=== PATIENT | female | born 1980 | race Hispanic/Latino ===

== ENCOUNTER 2017-07-03 20:41 | Emergency (ER) | payer OTHER ==
--- NOTE | 2017-07-03 23:53 | Emergency Department Report ---
ED Rash HPI - HPI Chief Complaint: Skin Rash Stated Complaint: RASH Time Seen by Provider: 07/03/17 23:37 Rash Symptoms: Yes Itching, No Facial Swelling, No Tongue/Oral Swelling, No Breathing Difficulties, No Choking Sensation, No Wheezing/Dyspnea, No Peeling, No Blistering, No Fever, No Lightheaded, No Malaise, No Myalgias Severity: mild Other History: 37-year-old female past medical history migraines presents with complaint of rash to legs and groin back and lower abdomen. Patient states she started taking medicines this week for bronchitis including Augmentin and albuterol prednisone pack and Tessalon Perles. States she was treated at urgent care approximately 3-4 days ago. Patient is awake alert and oriented 3 does not appear to be in acute distress. Complains of slight itching on lower extremities. Denies chest pain shortness of breath nausea vomiting fever or chills. Denies any intraoral lesions. Denies use of any new cosmetics or new pets new fabrics new soaps or recent travel. ED Review of Systems ROS: Stated complaint: RASH Other details as noted in HPI Constitutional: denies: chills, fever Eyes: denies: eye pain, eye discharge, vision change ENT: denies: ear pain, throat pain Respiratory: denies: cough, shortness of breath, wheezing Cardiovascular: denies: chest pain, palpitations Endocrine: no symptoms reported Gastrointestinal: denies: abdominal pain, nausea, diarrhea Genitourinary: denies: urgency, dysuria, discharge Musculoskeletal: denies: back pain, joint swelling, arthralgia Skin: as per HPI. denies: rash, lesions Neurological: denies: headache, weakness, paresthesias Psychiatric: denies: anxiety, depression Hematological/Lymphatic: denies: easy bleeding, easy bruising ED Past Medical Hx - Past Medical History Hx Headaches / Migraines: Yes - Surgical History Past Surgical History?: No - Social History Smoking Status: Unknown if ever smoked Substance Use Type: None - Medications Home Medications: Home Medications Medication Instructions Recorded Confirmed Last Taken Type diphenhydrAMINE [Benadryl CAP] 25 mg PO Q8HR PRN #30 capsule 07/04/17 Unknown Rx Rash Exam - Exam General: Vital signs noted. No distress. Alert and acting appropriately. HEENT: No Periorbital Edema, No Conjuctival Injection, No Chemosis, No Perioral Edema, No Tongue Edema, No Uvular Edema, No Compromised Airway, No Drooling Lungs: Yes Good Air Exchange (Normal Breath Sounds), No Wheezes, No Ronchi, No Stridor, No Cough, No Labored Respirations, No Retractions, No Use of Accessory Muscles, No Other Abnormal Lung Sounds Heart: Yes Regular, No Murmur Skin: Yes Maculopapular Rash (round erythematous papules of different sizes on lower extremities back and abdomen. No significant visible intraoral lesions), Yes Excoriations, No Urticarial Rash, No Morbilliform rash, No Bulla(e), No Weeping, No Tenderness, No Erythema, No Edema, No Encrustations, No Other Other: Positive: Abdomen Normal, Neurologic Normal, Musculoskeletal Normal ED Course Vital Signs 07/03/17 07/03/17 21:45 22:08 Temperature 98.5 F 98.7 F Pulse Rate 83 87 Respiratory 18 18 Rate Blood Pressure 127/89 127/89 O2 Sat by Pulse 99 99 Oximetry ED Medical Decision Making - Lab Data Result diagrams: 07/04/17 00:09 07/04/17 00:09 - Medical Decision Making A/P: Erythema multiforme 1-possibly incited by use of new medicines for her bronchitis treatment as prescribed by urgent care center. I advised pt to refrain form continuing Augmentin i referenced [employer] and this is the only current medicine in her regimen known to cause EM. https://www.[employer]/contents/benzonatate- drug-information?source=search_result&search=tessalon%20perles&selectedTitle=1~7 #U428798; https://www.[employer]/contents/bgkxtrycwjs-mpx-ympchitsqhd-drug- information?source=search_result&search=augmentin&selectedTitle=1~144#R621234; https://www.[employer]/contents/vzdcbkqbkerykjykhs-mvcd-tklcuubvsov?source= search_result&search=methylprednisolone&selectedTitle=1~150#[id number] 2-case discussed with who also interviewed and examined the pt 3- labs unremarkable 4- I explained to patient that this is a self-limiting illness. I educated patient on signs and symptoms of Serafin Beauchamp's. I advised her to return to the ED for any worsening rash fever chills nausea vomiting or skin desquamation. Pt understood my instructions Critical care attestation.: If time is entered above; I have spent that time in minutes in the direct care of this critically ill patient, excluding procedure time. ED Disposition Clinical Impression: Erythema multiforme Disposition: - TO HOME OR SELFCARE Is pt being admited?: No Does the pt Need Aspirin: No Condition: Stable Instructions: Antibiotic Medication Allergy (ED) Prescriptions: diphenhydrAMINE [Benadryl CAP] 25 mg PO Q8HR PRN #30 capsule PRN Reason: Itching Referrals: [facility] [Outside] - 3-5 Days [facility] [Provider Group] - 3-5 Days Forms: Work/School Release Form(ED) Time of Disposition: 01:05
[2017-07-03] MEDS ORDERED: BENADRYL PO ONE (23:56)
[2017-07-04 00:45] LABS: Basophils % (Auto) 0.5 % (0.0-1.8); Eosinophils % (Auto) 9.3 % (0.0-4.3); Hematocrit 39.6 % (30.3-42.9); Hemoglobin 13.1 gm/dl (10.1-14.3); Mean Corpuscular HGB Conc 33 % (30-34); Mean Corpuscular Hemoglobin 28 pg (28-32); Mean Corpuscular Volume 85 fl (79-97); Platelet Count 253 K/mm3 (140-440); Red Blood Count 4.69 M/mm3 (3.65-5.03); Red Cell Distribution Width 13.7 % (13.2-15.2); White Blood Count 8.6 K/mm3 (4.5-11.0)
[2017-07-04 00:53] LABS: INR 1.07 (0.87-1.13)
[2017-07-04 00:54] LABS: Alanine Aminotransferase 28 units/L (7-56); Albumin 4.2 g/dL (3.9-5); Albumin/Globulin Ratio 1.2 %; Alkaline Phosphatase 70 units/L (35-129); Anion Gap 15 mmol/L; BUN/Creatinine Ratio 24; Blood Urea Nitrogen 12 mg/dL (7-17); Calcium 9.2 mg/dL (8.4-10.2); Carbon Dioxide 28 mmol/L (22-30); Chloride 98.9 mmol/L (98-107); Glucose 125 mg/dL (65-100); Potassium 3.8 mmol/L (3.6-5.0); Sodium 138 mmol/L (137-145); Total Protein 7.7 g/dL (6.3-8.2)
[2017-07-04 01:01] LABS: Partial Thromboplastin Time 28.8 Sec. (24.2-36.6)
[2017-07-04 01:10] LABS: Bilirubin,Direct 0.2 mg/dL (0-0.2); Bilirubin,Indirect 0.1 mg/dL
[2017-07-04 01:21] VITALS: BP 125/84
== END 2017-07-04 01:21 | disposition home or self-care (01) ==
LOC: ED 20:41
DX: L51.9 Erythema multiforme, unspecified (principal); G43.909 Migraine, unspecified, not intractable, without status migrainosus
CPT/HCPCS: 36415; 80048; 80074; 85025; 85610; 85730; 99283